=== PATIENT | female | born 1970 | race Caucasian/White ===

== ENCOUNTER 2016-10-25 08:35 | Outpatient (CLI) | payer OTHER ==
[2016-10-25] MEDS ORDERED: GADOBUTROL 7.5 MMOL/7.5 ML VIAL IVP ONE (09:43)
--- NOTE | 2016-10-25 15:03 | MRI Report ---
EXAM: MRI LUMBAR SPINE WITHOUT AND WITH CONTRAST EXAM DATE: 10/25/2016 09:58 AM. CLINICAL HISTORY: Chronic back pain with bilateral radiculopathy. COMPARISONS: MRI of the lumbar spine without and with contrast 08/15/2007. TECHNIQUE: Multiplanar, multisequence T1-weighted and fluid-sensitive sequences of the lumbar spine f rom T12 to S1 before and after administration of intravenous contrast. IV contrast: Gadolinium. Other : None. FINDINGS: For the purposes of this report the last lumbar style vertebral body will be designated L5. However, there are no ribs present on T12 or they are severely hypoplastic. Therefore there may be a transitio nal vertebral body present. The conus terminates at T12-L1 and is normal. There are surgical changes of anterior fusion from L5 through S1. There are surgical changes of poste rior fusion from L5 through S1 utilizing transpedicular screws and posterior fusion bars. There are s urgical changes of posterior decompression from bilateral laminectomies of L5. The abdominal aorta is of normal caliber. The kidneys are without evidence of hydronephrosis. The par aspinal musculature and psoas musculature are without significant atrophy. There is a Schmorl's node in the superior endplate of L2. L1-L2: There is a minimal disk bulge with annular tear abutting the sac without significant central c anal stenosis. There is minimal bilateral facet arthropathy. Previously there was no disk bulge. Ther e is no significant foraminal stenosis. L2-L3: There is a small disk bulge eccentric to the left entering into the left foraminal and extrafo raminal space producing mild narrowing of the left neural foramen. There is mild narrowing of the rig ht neural foramen. The facets are normal. There is mild ligamentum flavum hypertrophy. L3-L4: There is a small disk osteophyte complex with annular tear eccentric to the left. There is a m ild central canal stenosis. There is mild ligamentum flavum hypertrophy. The facets are normal. There is mild right and mild to moderate left neural foraminal narrowing. L4-L5: There is a minimal disk bulge abutting the sac producing a minimal central canal stenosis. The re is minimal right facet arthropathy. There is mild right and minimal left neural foraminal narrowin g. There has been slight retraction of the disk bulge. L5-S1: There are surgical changes of posterior decompression from bilateral laminectomies. There is n o significant disk bulge or central canal stenosis. There is mild to moderate right and mild left katia ral foraminal narrowing. There are small areas of enhancement of the posterior epidural space and bilateral laminectomy defect s consistent with small areas of peridural fibrosis. However, there does not appear to be significant mass effect against the thecal sac and therefore this is of uncertain clinical significance. There is unchanged mild distortion and focal enlargement of the right S1 exiting nerve root sheath. IMPRESSION: 1. There are surgical changes of anterior and posterior fusion from L5 through S1. There are surgical changes of posterior decompression from bilateral laminectomies of L5. There grossly does not appear to be a significant central canal stenosis at L5-S1. There is mild to moderate degree of right lee inal stenosis. There are small areas of peridural fibrosis in the posterior epidural space at L5-S1 e xtending into the laminectomy defects. However, there is no significant mass effect against the theca l sac and therefore this is of uncertain clinical significance. 2. There has been slight retraction of the disk bulge at L4-L5 which is now minimal producing a minim al central canal stenosis. 3. There is a mild central canal stenosis at L3-L4 from small disk osteophyte complex with annular te ar. There has been slight progression of the disk bulge in terms of the left foraminal and extraforam inal space component. There has been progression of the left foraminal stenosis which is now mild to moderate. Comment: The following findings are so common in adults without low back pain that while we report th eir presence, they must be interpreted with caution and in the context of the clinical situation. (Re talat Cheung et al, Spine 2001) Prevalence of findings in patients without low back pain: Disk degeneration (any evidence): 92% Disk desiccation/T2 signal loss: 83% Disk height loss: 56% Disk bulge: 64% Disk protrusion: 32% Annular tear/high intensity zone: 38% [facility] Referring Provider Line: [phone] SITE ID: [id number]
== END 2016-10-25 08:36 | disposition home or self-care (01) ==
LOC: DI 08:35
PROVIDERS: ATTEND Family Medicine
DX: M51.36 Other intervertebral disc degeneration, lumbar region (principal); M47.896 Other spondylosis, lumbar region; Z98.1 Arthrodesis status
CPT/HCPCS: 72158; A9585

== ENCOUNTER 2017-01-18 12:55 | Emergency (ER) | payer OTHER ==
--- NOTE | 2017-01-18 13:32 | ED Physician Documentation ---
PD HPI NVD - Stated complaint Stated Complaint: VOMITING/CHILLS/D - Chief complaint Chief Complaint: Abd Pain - History obtained from History obtained from: Patient - History of Present Illness Timing - onset: How many days ago Timing - duration: Days Timing - details: Gradual onset Associated symptoms: Fever, Abdominal pain, Dizzy Improved by: Eating Worsened by: Eating Similar symptoms before: Has not had sx before Recently seen: Not recently seen Review of Systems Constitutional: denies: Fever, Myalgias Nose: reports: Congestion. denies: Rhinorrhea / runny nose Throat: reports: Dental pain / toothache. denies: Oral lesions / sores Respiratory: denies: Dyspnea, Cough GI: denies: Vomiting Neurologic: reports: Generalized weakness, Numbness. denies: Focal weakness, Headache PD PAST MEDICAL HISTORY - Past Medical History Cardiovascular: None Respiratory: None Endocrine/Autoimmune: None GI: Cholelithiasis : None HEENT: None Psych: Post traumatic stress disorder Musculoskeletal: Chronic back pain, Other Derm: None - Past Surgical History Past Surgical History: Yes Ortho: Other Neuro: Other - Present Medications Home Medications: Ambulatory Orders Medication Instructions Recorded Confirmed Alprazolam [Xanax] 0.5 mg PO TID PRN 02/04/13 01/18/17 Morphine ER [Ms Contin] 30 mg PO Q12H 02/04/13 01/18/17 Topiramate [Topamax] 200 mg PO BID 02/04/13 01/18/17 Dexamethasone [Decadron] 4 mg PO DAILY #5 tablet 01/18/17 Famotidine [Pepcid] 20 mg PO BID #30 tablet 01/18/17 - Allergies Allergies/Adverse Reactions: Allergies Allergy/AdvReac Type Severity Reaction Status Date / Time NSAIDS (Non-Steroidal Allergy gi bleed Verified 02/24/13 15:49 Anti-Inflamma prednisone Allergy acne Verified 02/04/13 16:52 Penicillins AdvReac Unknown Rash Verified 02/20/13 19:16 - Social History Does the pt smoke?: No Smoking Status: Never smoker Does the pt drink ETOH?: No Does the pt have substance abuse?: No - Immunizations Immunizations are current?: Yes - POLST Patient has POLST: No PD ED PE NORMAL - Vitals Vital signs reviewed: Yes - General General: Alert and oriented X 3, No acute distress, Well developed/nourished - HEENT HEENT: Moist mucous membranes, Pharynx benign - Neck Neck: Supple, no meningeal sign, No bony TTP - Cardiac Cardiac: RRR, No gallop - Respiratory Respiratory: No respiratory distress, Clear bilaterally Results - Vitals Vitals: Oxygen O2 Source Room air - Labs Labs: Laboratory Tests 01/18/17 01/18/17 13:30 13:30 WBC 6.0 RBC 4.30 Hgb 14.1 Hct 41.9 MCV 97.5 MCH 32.7 H MCHC 33.6 RDW 12.9 Plt Count 180 MPV 8.1 Neut # 3.9 Lymph # 1.2 L [place] # 0.8 Eos # 0.0 Baso # 0.0 Absolute Nucleated RBC 0.00 Nucleated RBC % 0.0 Sodium 137 Potassium 3.3 L Chloride 106 Carbon Dioxide 21 Anion Gap 10.0 BUN 5 L Creatinine 0.8 Estimated GFR (MDRD) 78 L Glucose 85 Calcium 9.2 Total Bilirubin 0.4 AST 19 ALT 61 H Alkaline Phosphatase 91 Total Protein 7.7 Albumin 4.1 Globulin 3.6 Albumin/Globulin Ratio 1.1 Lipase 19 L PD MEDICAL DECISION MAKING - ED course Complexity details: reviewed results, considered differential, d/w patient Departure - Departure Disposition: 01 Home, Self Care Clinical Impression: Nausea vomiting and diarrhea, Upper abdominal pain, Flu-like symptoms Condition: Stable Record reviewed to determine appropriate education?: Yes Instructions: ED Abdominal Pain Unkn Cause, ED Nausea Vomiting Follow-Up: Frederick Huertas DO [Primary Care Provider] - Prescriptions: Dexamethasone [Decadron] 4 mg PO DAILY #5 tablet Famotidine [Pepcid] 20 mg PO BID #30 tablet Comments: Small frequent fluids. Continue the ondansetron if needed for nausea. Decadron daily for several more days to reduce inflammation. I presume her stomach is irritated from being ill and I would suggest an acid reducing medicines such as famotidine twice daily for the next week or 2. He can add antacid such as Tums Maalox or Mylanta as well. Recheck if not improving over the next few days. Forms: Activity restrictions Discharge Date/Time: 01/18/17 16:01
[2017-01-18 13:39] LABS: BASOPHILS % (AUTO) 0.7 %; EOSINOPHILS % (AUTO) 0.1 %; HCT - HEMATOCRIT 41.9 % (37.0-47.0); HGB - HEMOGLOBIN 14.1 g/dL (12.0-16.0); LYMPHOCYTES # (AUTO) 1.2 10^3/uL (1.5-3.5); LYMPHOCYTES % (AUTO) 20.3 %; MEAN CORPUSCULAR HEMOGLOBIN 32.7 pg (27.0-31.0); MEAN CORPUSCULAR HGB CONC 33.6 g/dL (32.0-36.0); MEAN CORPUSCULAR VOLUME 97.5 fL (81.0-99.0); MEAN PLATELET VOLUME 8.1 fL (7.9-10.8); MONOCYTES # (AUTO) 0.8 10^3/uL (0.0-1.0); MONOCYTES % (AUTO) 13.7 %; NEUTROPHILS # (AUTO) 3.9 10^3/uL (1.5-6.6); NEUTROPHILS % (AUTO) 65.2 %; RED CELL DISTRIBUTION WIDTH 12.9 % (12.0-15.0)
[2017-01-18] MEDS ORDERED: DEXAMETHASONE 10 MG/ML VIAL IVP STA (13:51)
[2017-01-18] MEDS ORDERED: FAMOTIDINE 20 MG/50 ML 50 ML IV ONE ×2 (13:51→14:08)
[2017-01-18] MEDS ORDERED: ONDANSETRON 4 MG/2 ML VIAL IVP STA (13:51)
[2017-01-18] MEDS ORDERED: MAG HYDROX/AL HYDROX/SIMETH 30 ML UDC PO STA (13:51)
[2017-01-18] MEDS ORDERED: SODIUM CHLORIDE 0.9% 1,000 ML IV ONE ×2 (13:51→13:52)
[2017-01-18 13:52] LABS: ALBUMIN/GLOBULIN RATIO 1.1 (1.0-2.2); BILIRUBIN,TOTAL 0.4 mg/dL (0.2-1.0); CALCIUM 9.2 mg/dL (8.5-10.3); CREATININE 0.8 mg/dL (0.4-1.0); POTASSIUM 3.3 mmol/L (3.5-5.0); TOTAL PROTEIN 7.7 g/dL (6.7-8.2)
[2017-01-18] MEDS ORDERED: ACETAMINOPHEN 1,000 MG/100 ML 100 ML IV STA (13:52)
[2017-01-18] MEDS ORDERED: ALBUTEROL NEB 2.5 MG/3 ML INH STA (13:53)
[2017-01-18] MEDS ORDERED: ONDANSETRON 4 MG/2 ML VIAL ONE (14:08)
[2017-01-18] MEDS ORDERED: DEXAMETHASONE 10 MG/ML VIAL ONE (14:08)
[2017-01-18] MEDS ORDERED: ACETAMINOPHEN 1,000 MG/100 ML 100 ML IV ONE (14:09)
[2017-01-18] MEDS ORDERED: MAG HYDROX/AL HYDROX/SIMETH 30 ML UDC ONE (14:09)
[2017-01-18] MEDS ORDERED: SODIUM CHLORIDE FLUSH 0.9% 10 ML SYRINGE IVP ONE (14:10)
[2017-01-18] MEDS ORDERED: ALBUTEROL NEB 2.5 MG/3 ML INH ONE (14:10)
[2017-01-18 15:53] VITALS: BP 113/61
== END 2017-01-18 16:01 | disposition home or self-care (01) ==
LOC: ED 12:55
DX: R11.2 Nausea with vomiting, unspecified (principal); R19.7 Diarrhea, unspecified; R10.10 Upper abdominal pain, unspecified
CPT/HCPCS: 36415; 80053; 83690; 85025; 85027; 96361; 96365; 96367; 96375; 99283; 99284; A9270; J0131; J7613

== ENCOUNTER 2021-03-28 07:05 | Outpatient (CLI) | payer OTHER ==
--- NOTE | 2021-03-28 12:37 | MRI Report ---
PROCEDURE: Lumbar Spine W/O INDICATIONS: LUMBAR RADICULOPATHY TECHNIQUE: Noncontrast sagittal T1 spin echo and T2 fast echo, sagittal STIR, axial T1 and T2 fast spin echo thr ough the lumbar spine. In cases with scoliosis, additional coronal T2 fast spin echo may be performe d. COMPARISON: None. FINDINGS: Image quality: Excellent. 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 For the purposes of t his dictation, as numbered in the previous dictation, this vertebra is described as T12,, and axial i maging is described as having occurred from T12 L1-L5 S1. Remote posterior laminectomy at L5 and post erior lateral marcella and pedicle screw fixation at L5-S1. Very mild levocurvature centered at L2-L3. Bone Marrow: Marrow is of normal overall signal. No acute vertebral body compression fractures. Spinal Cord: Conus medullaris terminates at the L1 level. Visualized cord demonstrates normal signa l and size. Paraspinous Soft Tissues: No paravertebral masses. T12-L1: No canal stenosis or foraminal stenosis. L1-L2: Minimal disc bulge, unchanged. No canal stenosis or foraminal stenosis. L2-L3: Minimal disc bulge, unchanged. Mild facet hypertrophy. No canal stenosis or foraminal steno sis. L3-L4: Increase in posterior disc bulge. Facet and ligament hypertrophy. Development of mild centra l canal stenosis. Development of a left foraminal annulus tear associated with mild foraminal disc pr otrusion impinging on the exiting left L3 nerve root far laterally. L4-L5: Mild disc bulge. Borderline canal stenosis. No foraminal stenosis. Not significantly changed . L5-S1: Posterior laminectomy and fusion. No canal stenosis. No significant foraminal stenosis. IMPRESSION: 1. For the purposes of this dictation, numbering system describes the previous surgical level is L5-S 1, in which there has been posterior laminectomy and posterior lateral marcella and pedicle screw fixation . 2. Progression of findings at L3-L4. There is now mild central canal stenosis. A left foraminal annul us tear plus mild foraminal disc protrusion has developed, impinging on the exiting left L3 nerve edmar t far laterally. Question: Does this patient have symptoms of a left L3 radiculitis? 3. Mild multilevel facet arthropathy. Reviewed by: Christiano Rodriguez MD on 03/28/2021 12:36 PM PST Approved by: Christiano Rodriguez MD on 03/28/2021 12:36 PM PST Station ID: [id number]
== END 2021-03-28 07:06 | disposition home or self-care (01) ==
LOC: DI 07:05
PROVIDERS: ATTEND Family Medicine
DX: R32 Unspecified urinary incontinence (principal); M47.26 Other spondylosis with radiculopathy, lumbar region; M51.16 Intervertebral disc disorders with radiculopathy, lumbar region; M48.061 Spinal stenosis, lumbar region without neurogenic claudication; Z98.1 Arthrodesis status